=== PATIENT | female | born 1960 | race Caucasian/White ===

== ENCOUNTER → 2017-01-17 | Outpatient (CLI) | payer BC ==
[~2017-01-17] MED LIST: ALDACTONE50 MG PO; HORMONE REPLACEMENT; LEVOTHYROXIN0.075 MG PO; PRILOSEC OTC20 MG PO; VALTREX 500 MG500 M1 PO; ZOFRAN ODT4 MG PO; ZYRTEC10 M1 PO
== END ==
LOC: RAD 13:59
DX: Z12.31 Encounter for screening mammogram for malignant neoplasm of breast (principal)

== ENCOUNTER → 2018-02-03 | Outpatient (CLI) | payer BC | LOC: RAD 13:15 | DX: N63.10 Unspecified lump in the right breast, unspecified quadrant (principal); R92.2 Inconclusive mammogram ==

== ENCOUNTER → 2018-02-07 | Outpatient (CLI) | payer BC ==
--- NOTE | ~2018-02-07 | PATH ---
[facility] [address] [place] [address] PATHOLOGY RPT PROCEDURE Name: EZEQUIELJULIÁN Room #: REG SKYLER Kemp#: [id number] Admission: 02/07/18 Date of : 60 Discharge: Report #: [id number] Path Case #: [id number] [facility] Accession Number: [id number] . 01 Material submitted: . RIGHT BREAST . 01 Clinical history: . Mass in breast . 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 [facility]/02/11/2018 . 02 Comment: Specimen type: Needle core biopsy Tumor site: Right breast 12:00, 3 cm from nipple Tumor quantitation: At least 1.5 cm in a single core in contiguous length Histologic type: Invasive ductal carcinoma Histologic grade: Cristina grade 2 Tubules, nuclei and mitoses: 3, 2, 1 LVSI: Indeterminate Microcalcifications: Not identified Markers: ER, NV, Ki-67 and HER-2/JAZMYNE Block: A3 . Co review: Dr. Harry Scanlon (slide A1 only). . Findings are telephoned to Ms. Manzo at 11:10 am on 02/10/2018. (IUV:pit 02/11/2018) . 02 Electronically signed: . Rosina Walton MD, Pathologist NPI- [id number] . 01 Gross description: . The specimen is received in formalin, labeled "Julián Hightower, right breast". Received are multiple needle cores of yellow-carlton fibrofatty tissue measuring 3.0 x 2.5 x 0.2 cm in aggregate dimensions. The specimen is submitted entirely in cassettes A1 through A3. The cold ischemic time is less than one minute. The total formalin fixation time is 53 hours and five minutes. ([facility]; 02/09/2018) [facility] [place] [address] PATHOLOGY RPT PROCEDURE Name: JULIÁN HIGHTOWER Room #: REG CLLissy Kemp#: [id number] Admission: 02/07/18 Date of : 60 Discharge: Report #: [id number] Path Case #: [id number] . 02 Pathologist provided ICD-10: C50.911 . 02 CPT . 839451 Performed at: [address], [place], [place] [id number] MD King Conley MD Phone: [phone] Performed at: [address] [id number] MD Rosina Walton MD Phone: [phone]
== END ==
LOC: ULTRA 01:54
DX: C50.811 Malignant neoplasm of overlapping sites of right female breast (principal)

== ENCOUNTER → 2021-02-16 | Outpatient (CLI) | payer BC | LOC: CAT 07:55 | PROVIDERS: ATTEND Pediatrics | DX: J47.9 Bronchiectasis, uncomplicated (principal); J92.9 Pleural plaque without asbestos; K76.0 Fatty (change of) liver, not elsewhere classified; M25.78 Osteophyte, vertebrae; R91.8 Other nonspecific abnormal finding of lung field; Z85.3 Personal history of malignant neoplasm of breast ==